=== PATIENT | female | born 1975 ===

== ENCOUNTER 2017-04-07 01:05 | Emergency (ER) | payer SELFPAY ==
--- NOTE | 2017-04-07 02:54 | C.PDOC ---
History Of Present Illness Pt reports superficial rash to right foot x 2 weeks, now swelling and redness to area, denies fever, weakness or numbness Time Seen by Provider: 04/07/17 02:10 Chief Complaint (Nursing): Abnormal Skin Integrity History Per: Patient History/Exam Limitations: no limitations Onset/Duration Of Symptoms: Persistent (2 weeks ) Current Symptoms Are (Timing): Still Present Location Of Injury: Right: Foot Quality Of Symptoms: Swollen, Other (Redness to area of rash ) Recent travel outside of the [place]: No Past Medical History Reviewed: Historical Data, Nursing Documentation, Vital Signs Vital Signs: Last Vital Signs Temp 98.6 F 04/07/17 03:11 Pulse 82 04/07/17 03:11 Resp 18 04/07/17 03:11 BP 132/83 04/07/17 03:11 Pulse Ox 100 04/07/17 03:11 - Medical History PMH: Diabetes Family History: States: Unknown Family Hx - Social History Hx Tobacco Use: No Hx Alcohol Use: No Hx Substance Use: No - Immunization History Hx Tetanus Toxoid Vaccination: No Hx Influenza Vaccination: No Hx Pneumococcal Vaccination: No Review Of Systems Constitutional: Negative for: Fever, Chills Skin: Positive for: Rash (superficial rash to right foot ) Physical Exam - Physical Exam Appears: Non-toxic, No Acute Distress Skin: Warm, Dry Eye(s): bilateral: Normal Inspection, PERRL, EOMI Oral Mucosa: Moist Cardiovascular: Rhythm Regular Respiratory: Normal Breath Sounds Extremity: Normal ROM, Capillary Refill (good capillary refill, less than 2 seconds ), Swelling (minimal swelling to dorsal foot near lateral malleolus ), Other (Minimal local erythema, dry healing excoriation/ abrasion, non fluctuant to lateral malleolus ) Pulses: Left Dorsalis Pedis: Normal, Right Dorsalis Pedis: Normal Neurological/Psych: Oriented x3 Gait: Steady ED Course And Treatment Progress Note: Pt with dry excoriation to dorsal foot at base of ankle with minimal localized erythema and swelling. The is no apparent acute cellulitis , or fluctuant mass. Pt started on PO abx as pt is diabetic with new swelling to area now. Pt understands and agrees with plan, incl return precautions Disposition Counseled Patient/Family Regarding: Diagnosis, Need For Followup, Rx Given - Disposition Disposition: HOME/ ROUTINE Disposition Time: 02:52 Condition: STABLE Additional Instructions: Leg elevation Take meds as prescribed Return to ER if worse Prescriptions: Bacitracin Ointment [Bacitracin] 30 gm TOP BID #1 tube Cephalexin [cephalexin] 500 mg PO QID #28 cap Instructions: Cellulitis (ED) Print Language: FRISIAN - Clinical Impression Clinical Impression: Abrasion foot/toe, Cellulitis - Scribe Statement The provider has reviewed the documentation as recorded by the Teddyibarun Doll All medical record entries made by the Robyn were at my direction and personally dictated by me. I have reviewed the chart and agree that the record accurately reflects my personal performance of the history, physical exam, medical decision making, and the department course for this patient. I have also personally directed, reviewed, and agree with the discharge instructions and disposition.
[2017-04-07] MEDS ORDERED: Bacitracin 500 Units/gm Oint Foilpak UD ONE (03:11)
[2017-04-07 03:13] VITALS: BP 132/83; PULSE 82; RESP 18; TEMP 98.6; O2SAT 100
== END 2017-04-07 03:30 | disposition home or self-care (01) ==
LOC: C.ER 01:05
DX: L03.115 Cellulitis of right lower limb (principal); S90.811A Abrasion, right foot, initial encounter; S90.414A Abrasion, right lesser toe(s), initial encounter; X58.XXXA Exposure to other specified factors, initial encounter